=== PATIENT | female | born 1975 | race Caucasian/White ===

== ENCOUNTER 2016-12-11 09:54 | Day surgery (SDC) | payer OTHER ==
[~2016-12-11 09:54] MED LIST: ACETAMINOPHEN 500 MG TABLET PO PRN; HYDROmorphone HCL 2 MG/ML VIAL IV PRN; MAG HYDROX/ALUMINUM HYD/SIMETH 30 ML UDC PO PRN; MAGNESIUM HYDROXIDE 30 ML UDC PO PRN; ONDANSETRON HCL/PF 2 MG/ML VIAL IV PRN; PROMETHAZINE HCL 25 MG in DEXTROSE 5 % IN WATER 50 ML IV PRN; RINGERS SOLUTION,LACTATED 1,000 ML IV PRN; ZOLPIDEM TARTRATE 5 MG TABLET PO PRN; ceFAZolin SODIUM 1 GM VIAL IV PRN; diphenhydrAMINE HCL 50 MG/ML VIAL IV PRN; oxyCODONE HCL/ACETAMINOPHEN 1 TAB TABLET PO PRN
[2016-12-11] MEDS ORDERED: BUPIVACAINE HCL/EPINEPHRINE 50 ML VIAL IJ ONE ×2 (12:00)
[2016-12-11] MEDS ORDERED: RINGERS SOLUTION,LACTATED 1,000 ML IV ONE (12:35)
--- NOTE | 2016-12-11 14:05 | OR ---
Operative Report - Dictated Report Narrative: Date: 12/11/2016 Physician: Calderon Henson M.D. Senior [employer] Engineer: Kevin Dorantes PA-C Preoperative diagnosis: Left Shoulder anterior labral tear Postoperative diagnosis: Left Shoulder anterior labral tear Procedure: Left shoulder arthroscopy with anterior labral repair Anesthesia: General plus local Complications: None Estimated blood loss: Minimal Specimens: None Retained implants: Dorantes and nephew 2.9 mm bio Raptor anchors 1, [employer] all suture anchor 1 Drains: None Indications: Jah Is a 41 year-old female who has been followed in my clinic with complaints of shoulder pain consistent with anterior labral pathology. Physical exam and diagnostic imaging were consistent with his complaints and concern for anterior labral pathology. Conservative measures have failed including, but not limited to, passage of time, activity modification, medications, physical therapy/home exercise program, or injections. The risks, benefits, and alternatives were discussed in clinic. The risks being , bleeding, infection, blood clots, nerve, tendon, ligament, blood vessel injury, persistent pain, arthrosis, stiffness, need for prolonged therapy, need for additional procedures, and persistent symptoms. Consent was obtained in the clinic. Procedure: After marking the correct extremity in the preoperative holding area, a timeout was performed in the operating room. IV antibiotics consisting of 1 g of Ancef were administered prior to the procedure. A general anesthetic was induced by the nurse produce team lead without complication. This was in the supine position, then the patient was transitioned to a right lateral decubitus position on a beanbag with all bony prominences well-padded, head in neutral, the nonoperative arm well supported, and the legs padded with SCDs in place. The operative shoulder was then prepped and draped in a standard sterile fashion. Preoperatively the shoulder had full passive range of motion and no gross instability. The operative arm was placed into a boom style lateral arm traction device with 14 pounds of longitudinal traction. After marking out the bony landmarks, saline was infused into the joint through a posterior lateral portal site. A rosa incision was made, and the blunt trocar and cannula was introduced into the shoulder joint. A low anterior working portal was placed in the rotator cuff interval just superior to the scapularis tendon using a spinal needle for guidance. Upon initial evaluation, the biceps tendon showed no pathology. The middle glenohumeral ligament was intact. Subscapularis tendon was intact. The glenoid showed no chondral changes. The humeral head articular surface showed no chondral changes. The anterior labrum was torn and sitting anteriorly down off the glenoid from approximately 7:00 to 9:00. The superior labrum was intact. The pouch was of normal caliber without loose bodies. The posterior labrum was intact. The supraspinatus tendon was intact with no tearing. The infraspinatus tendon was active with no tearing. Based on the arthroscopic findings, as well as exam and radiographic findings, it was elected to proceed with an anterior labral repair. A second anterior superior working portal was established using a spinal needle for guidance. Next a soft tissue elevator was used to elevate the anterior labrum up off of the anterior neck of the glenoid. The glenoid rim was then debrided with a 4.0 mm shaver producing a bleeding bony bed for the labrum to heal down to. A Dorantes and nephew 2.7 mm bio Raptor anchor was then placed at approximately the 7 o'clock position anteriorly. The suture tails were passed around the anterior labrum and a horizontal mattress fashion and tied down. While tying this down was noted that the anchor had come loose. The suture was cut and the suture along with the anchor was removed from the joint. Using the same drill hole a larger 2.9 mm bio Raptor anchor was implanted and this was noted to have good stability. Once again the suture tails were passed in a horizontal mattress fashion and tied down bringing up a nice bumper of labral tissue. A second 2.7 mm bio Raptor anchor was placed at approximately the 8:30 position anteriorly. Once again the suture limbs were passed in a horizontal mattress fashion and a once again while tying this down the anchor was noted to come loose. Unclear at this point why the smaller anchors kept pulling out. During drilling we had good resistance and she appeared to have normal bone quality. The second 2.7 mm by Raptor anchor and its suture were removed from the joint and once again using the same drill hole and all suture anchor was placed and had good stability. One suture limb was passed around the labrum in a simple fashion and was tied down bringing the labrum down to the glenoid rim. At this point we had established a nice anterior labral bumper which was stable to probing. We felt there was no other pathology to address and all arthroscopic instruments and cannulas were removed from the shoulder. The portal sites were closed with interrupted nylon. Dressings consisting of Xeroform, 4 x 4, ABD, soft roll, and tape were applied. All sponge, needle, blade, and instrument counts were correct prior to closing the wounds. The patient was awoken and transferred to the postanesthesia care unit in stable condition.
[2016-12-11 17:44] VITALS: BP 120/72
[2016-12-11] MEDS ORDERED: SENNOSIDES/DOCUSATE SODIUM 1 TAB TABLET PO SCH (21:00)
== END 2016-12-11 09:55 | disposition home or self-care (01) ==
LOC: AMB 09:54
PROVIDERS: ATTEND Orthopaedic Surgery
PROC: 0MM24ZZ Reattachment of Left Shoulder Bursa and Ligament, Percutaneous Endoscopic Approach (ICD-10-PCS; principal; 2016-12-11 10:00)
DX: S43.492A Other sprain of left shoulder joint, initial encounter (principal); Z68.21 Body mass index [BMI] 21.0-21.9, adult